=== PATIENT | male | born 1990 | race African-American/Black ===

== ENCOUNTER 2018-12-02 11:07 | Emergency (ER) | payer OTHER ==
[~2018-12-02] VITALS: Ht 188 cm; Wt 78.9 kg
[2018-12-02] MEDS ORDERED: ADACEL/BOOSTRIX VACCINE (DIPHTH/PERTUSS/ACELL/TETANUS)0.5ML SYR (90715) IM ONE (12:15)
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
[2018-12-02 14:20] VITALS: BP 120/66
== END 2018-12-02 14:28 | disposition home or self-care (01) ==
LOC: M ED 11:07
DX: S80.811A Abrasion, right lower leg, initial encounter (principal); V43.52XA Car driver injured in collision with other type car in traffic accident, initial encounter; Y92.410 Unspecified street and highway as the place of occurrence of the external cause; Y93.9 Activity, unspecified; Y99.9 Unspecified external cause status